=== PATIENT | female | born 1950 | race Caucasian/White ===

== ENCOUNTER 2016-08-08 21:16 | Emergency (ER) | payer MEDICARE ==
[2016-08-08 21:52] LABS: BASO # 0.1 10_X3_uL (0.0-0.1); BASO % 0.6 % (0.1-1.2); EOS # 0.5 10_X3_uL (0.0-0.4); EOS % 5.6 % (0.7-5.8); GRAN # 4.7 10_X3_uL (1.6-6.1); GRAN % 50.7 % (34.0-71.1); HEMATOCRIT 29.6 % (34-45); HEMOGLOBIN 9.1 g/dL (11.2-15.7); LYMPH # 3.2 10_X3_uL (1.2-3.7); LYMPH % 34.9 % (19.3-51.7); MEAN CORPUSCULAR HEMOGLOBIN 23.8 pg (27.0-33.0); MEAN CORPUSCULAR HGB CONC 30.7 g/dL (32.0-36.0); MEAN CORPUSCULAR VOLUME 77.5 fL (79-95); MEAN PLATELET VOLUME 11.9 fl (7.5-11.5); MONO # 0.8 10_X3_uL (0.2-0.9); MONO % 8.2 % (4.7-12.5); PLATELET COUNT 237 x10_3/uL (182-369); RED BLOOD COUNT 3.82 x10_6/uL (3.9-5.2); RED CELL DISTRIBUTION WIDTH 14.7 % (11.7-14.4); WHITE BLOOD COUNT 9.3 x10_3/uL (4.0-10.0)
[2016-08-08 22:07] LABS: ALBUMIN 4.1 gm/dL (3.4-5.0); ALKALINE PHOSPHATASE 70 U/L (50-136); ALT/SGPT 18 U/L (3.5-33.9); AST/SGOT 18 U/L (7.04-26.96); BILIRUBIN,TOTAL < 0.15 mg/dL (0.0-1.0); BLOOD UREA NITROGEN 16 mg/dL (7-18); CARBON DIOXIDE 20 mmol/L (21-32); CREATINE KINASE 141 U/L (21-215); CREATININE 1.2 mg/dL (0.6-1.3); GLUCOSE,RANDOM 140 mg/dL (70-99); POTASSIUM 4.2 mmol/L (3.5-5.1); SODIUM 132 mmol/L (136-145); TOTAL PROTEIN 6.7 gm/dL (6.4-8.2)
== END 2016-08-08 23:35 | disposition home or self-care (01) ==
LOC: ER 21:16
PROVIDERS: Internal Medicine
DX: F41.9 Anxiety disorder, unspecified (principal); R00.1 Bradycardia, unspecified; E07.9 Disorder of thyroid, unspecified; I10 Essential (primary) hypertension; E11.9 Type 2 diabetes mellitus without complications; N29 Other disorders of kidney and ureter in diseases classified elsewhere; Z90.710 Acquired absence of both cervix and uterus; Z88.0 Allergy status to penicillin; Z88.1 Allergy status to other antibiotic agents; Z79.899 Other long term (current) drug therapy; Z79.84 Long term (current) use of oral hypoglycemic drugs
CPT/HCPCS: 36415; 71010; 80053; 82550; 82553; 85025; 93005; 99284-25